=== PATIENT | female | born 1980 | race African-American/Black ===

== ENCOUNTER 2016-10-01 17:33 | Emergency (ER) | payer OTHER ==
[~2016-10-01] VITALS: Ht 172.7 cm; Wt 90.7 kg
[~2016-10-01 17:33] MED LIST: AFRIN15 ML NS; ALLEGRA ALLERG180 MG PO; CIPROFLOXIN HC2.5 M1 OPHTHALMIC; CLARITIN10 MG PO; CLEOCIN HCL150 MG PO; CORTISPORIN OTI10 M2 OTIC; FLAGYL500 MG PO; LORATIDINE 10 M10 M1 PO; MEDROLDOSEPACK PO; MOBIC15 MG PO; NORCO 5-325 TA1 EACH PO; PATANOL5 ML OPHTHALMIC; PREDNISONE 20 M20 MG PO; TESSALON PERLE100 MG PO; VENTOLIN HFA 1818 GM INH; VICODIN 5-5001 EACH PO; ZANTAC 150MG T150 MG PO; ZPAK PO; ZYRTEC10 M2 PO; ZYRTEC10 MG PO
[2016-10-01] MEDS ORDERED: PREDNISONE 20 M20 MG PO (18:41)
[2016-10-01 18:53] VITALS: BP 144/95
== END 2016-10-01 18:54 | disposition home or self-care (01) ==
LOC: ER 17:33
DX: T78.49XA Other allergy, initial encounter (principal); L30.9 Dermatitis, unspecified; J45.909 Unspecified asthma, uncomplicated; F17.210 Nicotine dependence, cigarettes, uncomplicated; F10.99 Alcohol use, unspecified with unspecified alcohol-induced disorder; Z88.1 Allergy status to other antibiotic agents; Z91.018 Allergy to other foods; X58.XXXA Exposure to other specified factors, initial encounter

== ENCOUNTER 2017-02-05 12:25 | Emergency (ER) | payer OTHER ==
[~2017-02-05] VITALS: Ht 172.7 cm; Wt 86.2 kg
[2017-02-05 13:00] LABS: URINE BILIRUBIN NEGATIVE (Negative); URINE BLOOD 2+ (Negative); URINE COLOR YELLOW; URINE GLUCOSE-RANDOM* NEGATIVE (Negative); URINE KETONES NEGATIVE (Negative); URINE PROTEIN (DIPSTICK) NEGATIVE (Negative); URINE UROBILINOGEN 0.2 E.U./dl (0.2-1.0)
[2017-02-05 13:01] LABS: URINE LEUKOCYTES-REFLEX 1+ (Negative)
[2017-02-05 13:09] LABS: CASTS None Seen /LPF (None Seen); CRYSTALS None Seen /LPF (None Seen); SQUAMOUS 4-10 Moderate /LPF (0-3)
[2017-02-05 13:10] LABS: URINE RBC 0-2 Rare /HPF (0-2); URINE WBC-REFLEX 6-15 Few /HPF (0-5)
[2017-02-05 13:18] LABS: ABSOLUTE NEUTROPHILS 11.6 thou/uL (1.4-8.2); BASOPHILS 0.7 % (0.0-2.0); EOSINOPHILS 3.5 % (0.0-3.0); HEMATOCRIT 37.8 % (37.0-47.0); HEMOGLOBIN 12.5 gm/dL (12.0-15.0); LYMPHOCYTES 11.3 % (24.0-44.0); MCH 28.3 pg (26.0-34.0); MCHC 33.1 g/dL (28.0-37.0); MCV 85.4 fL (80.0-100.0); MONOCYTES 6.5 % (1.0-8.0); PLATELET COUNT 287 thou/uL (150-400); RBC 4.42 mil/uL (4.20-5.00); RDW 14.3 % (10.5-14.5); WBC 14.9 thou/uL (4.0-11.0)
[2017-02-05 13:20] LABS: MANUAL DIFF NO
[2017-02-05 13:34] LABS: CREATININE 1.1 mg/dL (0.6-1.0); POTASSIUM 3.7 mmol/L (3.5-5.1)
[2017-02-05 13:40] LABS: ALBUMIN 3.1 g/dL (3.4-5.0); TOTAL BILIRUBIN 0.3 mg/dL (<0.1-1.0); TOTAL PROTEIN 6.7 g/dL (6.4-8.2)
[2017-02-05 14:50] VITALS: BP 161/105
[2017-02-06 16:11] LABS: CHLAMYDIA TRACHOMATIS-PCR Negative (Negative); NEISSERIA GONORRHEA-PCR Positive (Negative)
== END 2017-02-05 14:50 | disposition home or self-care (01) ==
LOC: ER 12:25
PROVIDERS: Physician Assistant
DX: R10.9 Unspecified abdominal pain (principal); F17.210 Nicotine dependence, cigarettes, uncomplicated; J45.909 Unspecified asthma, uncomplicated; Z20.2 Contact with and (suspected) exposure to infections with a predominantly sexual mode of transmission; Z88.1 Allergy status to other antibiotic agents; Z88.2 Allergy status to sulfonamides; Z91.018 Allergy to other foods

== ENCOUNTER 2017-10-06 15:02 | Emergency (ER) | payer OTHER ==
[~2017-10-06] VITALS: Ht 175.3 cm; Wt 86.2 kg
[2017-10-06 15:11] VITALS: BP 142/92
[2017-10-06] MEDS ORDERED: HYDROCHLOROTHIA25 M2 PO (15:16)
[2017-10-06] MEDS ORDERED: AMOXICILLIN 50500 MG PO (15:43)
[2017-10-06] MEDS ORDERED: TRAMADOL 50 MG50 MG PO (15:43)
[2017-10-06] MEDS ORDERED: IBUPROFEN 800800 M1 PO (15:43)
== END 2017-10-06 16:00 | disposition home or self-care (01) ==
LOC: ER 15:02
DX: K02.9 Dental caries, unspecified (principal); F17.210 Nicotine dependence, cigarettes, uncomplicated; J45.909 Unspecified asthma, uncomplicated; I10 Essential (primary) hypertension; Z88.1 Allergy status to other antibiotic agents; Z88.2 Allergy status to sulfonamides; Z88.8 Allergy status to other drugs, medicaments and biological substances; Z91.018 Allergy to other foods; Z98.890 Other specified postprocedural states